=== PATIENT | male | born 1990 | race Caucasian/White ===

== ENCOUNTER 2024-12-01 09:34 | Outpatient (RCR) | payer BC, SELFPAY ==
--- NOTE | 2024-12-01 09:00 | BH.SGPN.GN ---
Behaviors/Verbalizations/Mental Status: [] Client Response/Progress/Benefit: [] Narrative Note: []
--- NOTE | 2024-12-01 10:21 | PCM.BH.PSYEV ---
Psychiatric Evaluation Initial Evaluation Initial Evaluation: HPI History of Present Illness History provided by: patient HPI: Dennys Kidd is a 34 year old male who presents today for new patient evaluation. Admits that he has been on fluoxetine since about [id number]. Admits to having had symptoms of depression and anxiety for a prolonged period. In July started to be weaned off of medication, so was started on buspirone and anxiety got exponentially worse. Had been trying to wean because of side effects of heat intolerance, low motivation, and fatigue. Also felt somewhat flattened. In October, was feeling significantly worse, and was hospitalized and admitted to [facility]. Was having some increased thoughts of suicide at this time. Admits to having started to formulate plan, but no attempt at this time. Because he has diabetes and glucose was poorly managed and was transferred to [facility] for diabetes management. Admits that his anxiety can increase and he starts to spiral afterwards. Patient reports that his mood now is ok. Recently started venlafaxine and has been taking for about the last 3 weeks. When feeling anxious, sleep is much worse, but has recently started trazodone. 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 Diabetes has been largely well controlled. Denies any acute SI HI or AVH. Sleep: uses trazodone, which has been helping Interest: was worse before, a little better now Guilt: admits to general sense of guilt and worthlessness Energy: has been somewhat better with effexor Concentration: poor with anxiety symptoms Appetite: anxiety worsens appetite, has lost 10-12 lbs without really trying Psychomotor: WNL Suicide: denies current SI, was feeling suicidal in October Memory: comes and goes Anxiety: admits to being high; has had panic symptoms in the past, none recently Madonna: denies symptoms PTSD: denies Psychosis: denies AH/VH or delusions Developmental History Developmental History: Siblings - 1 brother, 1 sister, 3 step brothers Born/Raised - [facility] [place], associates and bachelors from [employer] [facility] [place] Living Situation - lives with and kids; sons, 5 and going to be 3 Legal Issues - denies Employment - works at [employer] Children - 2 children as above Psychiatric History Previous psychiatric treatment history: x1 admission to [facility] Previous psychiatric diagnoses: depression, anxiety Previous psychiatric treatment programs: denies any previous Family Psychiatric History: Moms side - depression Fathers side - depression Suicidal Ideation Current: denies Past: yes in October History of suicide attempt: denies Suicide Risk Assessment Suicide risk factors: previous SI with partial plan Suicide protective factors: family, work Self Injurious Behavior Current: denies Past: denies Medication Trials Previous psychiatric medication trials: fluoxetine buspirone clonazepam Current/Previous Provider Psychiatrist: Ryan Buck in [place]; Follows with Phylicia Saavedra Therapist: Formerly followed using [facility] Other Substance Use History Nicotine- denies Alcohol- occasional alcohol Marijuana- denies Stimulants- denies Opioids- denies Other- denies Review of Systems: Admits to having some intermittent hypoglycemia which causes feeling faint and worsening anxiety. Review of systems otherwise negative outside of discussed in the HPI above Diagnoses/Plan:: Diagnoses: [] 1. Major depressive disorder, recurrent, severe without psychosis 2. Anxiety unspecified 3. Type 1 diabetes 4. Work stress Plan: [] The patient will start the IOP in behavioral health at [facility] as the structure, support, education and group therapy will hopefully prevent worsening of the patient's symptoms which could require hospitalization. He felt safe during the interview and if it anytime he does not feel safe he agrees to let us know or go to the emergency room. The risk, options, possible complications and side effects of the medications were discussed with the patient and he understands and accepts these. Patient has just started Effexor approximately 3 weeks ago and does feel as though he is doing better with the use of medication. We will continue on medications as before but could consider titration in the future pending response.
--- NOTE | 2024-12-01 11:42 | BH.MTP ---
Master Treatment Plan Patient Information Program Physician:: Dr. Cheli Tony Primary Therapist:: Natalia St Psychiatric Diagnoses Psychiatric Diagnoses:: Major depressive disorder, recurrent, severe without psychosis F33.2; Anxiety unspecified Diagnosis Code(s):: F 33.2 Estimated LOS Estimated LOS (in weeks):: 6 Problem/Goal #1 Problem/Goal #1 Stated Goal:: Pt will decrease depressive symptoms, thoughts of , and negative self-talk. Description of Barriers: Pt recently had side effects from a medication that resulted in worsening symptoms. Pt has lost some support as some of his family has moved out of [place]. Pt uses negative self-talk daily. Pt has not been able to enjoy his hobbies and interests. Functional Impact: Pt is a 34-year-old male with a history of MDD. Pt was referred to [facility] tx following a recent psych admission at [facility] from 10/24/24-10/25/24 for suicidal ideations with thoughts of crashing his car. Pt has been decompensating since July due to medication changes, work stress, and family stress. Prior to [facility] admission, pt had been off work for three weeks due to his symptoms. Pt also had to step back from his previous role at work due to his symptoms. At admission, pt endorses a depressed mood, low energy, hopelessness, worthlessness, isolation, anhedonia, and ruminations. Pt's daily functioning has been impaired as pt is struggling with getting out of bed and is not able to engage in his hobbies and interests. Goal Relevant Strengths/Supports: Pt has a supportive family unit, is future oriented, and has an outpatient psych provider. Objectives Objective #1: Stated Objective: Pt will learn and utilize 2-3 healthy coping strategies to better manage depressive symptoms as shown by a decrease of DMS-5 symptoms for depression. Interventions: Through group and individual sessions, therapist will help pt identify triggers and warning signs of depression and guilt including emotional, physical, and behavioral changes. Therapist will teach pt various coping skills to manage symptoms and give pt tangible resources to use to regulate emotions. Therapist will use cognitive restructuring techniques and help pt gain awareness of negative thoughts that reinforce guilt and depression. Therapist will provide psychoeducation on maintenance cycles and help pt learn ways to break unhealthy maintenance cycles. Therapist will help pt incorporate behavioral activation and assist pt in setting SMART goals. Discharge Criteria: Pt will have met this goal when can report learning and using at least 2 coping skills to manage depressive symptoms and reduce isolation. Additionally, pt will have met this goal when pt's DSM-5 scores for depression decrease. Target Date: 01/12/25 Review Date: 12/22/24 Status: open Objective #2: Stated Objective: Pt will identify at least 2-3 negative self-talk messages used to reinforce negative core beliefs, worthlessness, and isolation and replace thoughts with balanced, realistic messages. Interventions: Therapist will help pt identify distorted, negative beliefs about self and replace with more realistic, affirmative messages. Therapist will use CBT and DBT to help pt increase insight to the connection between thoughts, emotions, and behaviors. Therapist will encourage pt to practice thought challenging. Discharge Criteria: Pt will have achieved this goal when can verbalize at least 2 cognitive distortions and effectively replace those thoughts with affirmative messages. Target Date: 01/12/25 Review Date: 12/22/24 Status: open Problem/Goal #2 Problem/Goal #2 Stated Goal:: Will reduce anxiety symptoms through increasing emotional regulation and distress tolerance skills Description of Barriers: Pt recently had side effects from a medication that resulted in worsening symptoms. Pt has lost some support as some of his family has moved out of [place]. Pt uses negative self-talk daily. Pt has not been able to enjoy his hobbies and interests. Functional Impact: Pt is a 34-year-old male with a history of MDD. Pt was referred to [facility] tx following a recent psych admission at [facility] from 10/24/24-10/25/24 for suicidal ideations with thoughts of crashing his car. Pt has been decompensating since July due to medication changes, work stress, and family stress. Prior to [facility] admission, pt had been off work for three weeks due to his symptoms. Pt also had to step back from his previous role at work due to his symptoms. At admission, pt endorses a depressed mood, low energy, hopelessness, worthlessness, isolation, anhedonia, and ruminations. Pt's daily functioning has been impaired as pt is struggling with getting out of bed and is not able to engage in his hobbies and interests. Goal Relevant Strengths/Supports: Pt has a supportive family unit, is future oriented, and has an outpatient psych provider. Objectives Objective #1: Stated Objective: Pt will identify 2-3 anxiety and panic triggers and 2 coping skills to use when feeling anxious or overwhelmed to manage anxiety as shown by reducing DSM-5 scores for anxiety Interventions: Therapist will provide education on anxiety, avoidance behaviors, and maintenance cycles. Therapist will help pt explore personal symptoms and warning signs of anxiety and irritability. Therapist will teach pt coping skills to improve emotional regulation, mindfulness, and distress tolerance to help pt cope with anxiety in the moment. Discharge Criteria: Pt will have accomplished this goal when he can identify at least 2 triggers and report using 2 coping skills to manage anxiety and irritability. Additionally, pt will have accomplished this goal AEB reduction of DSM-5 scores for anxiety. Target Date: 01/12/25 Review Date: 12/22/24 Status: open Objective #2: Stated Objective: pt will identify 2-3 cognitive distortions that lead to rumination and learn 2-3 ways to manage these thoughts to better manage anxiety. Interventions: Therapist will provide education on the most common cognitive distortions and teach pt the connection between thoughts, emotions, and feelings. Therapist will assist pt in identifying, challenging, and replacing dysfunctional thoughts with positive, more realistic thoughts. Therapist will use CBT and DBT techniques to help pt gain awareness of thinking errors and learn how to more effectively handle negative thoughts. Discharge Criteria: Pt will have accomplished this goal when can identify at least 2 cognitive distortions and at least 2 coping skills to manage negative thoughts. Target Date: 01/12/25 Review Date: 12/22/24 Status: open
--- NOTE | 2024-12-01 11:42 | BH.MDN ---
Multi-Disciplinary Note Note 30-min Individual: Time Started:: 11:15 Date: 12/01/24 Purpose of session/treatment goals addressed:: To gather information on pt's current stressors, symptoms, triggers, history, and tx goals. Another goal was to build rapport and provide emotional support. Eye Contact:: Good Motor Activity:: Appropriate Appearance:: Neat Speech:: Appropriate Mood:: Anxious Affect:: Full Thoughts:: Linear, Logical and No evidence of hallucinations/delusions noted Staff Interventions:: rapport building, strengths perspective, treatment planning and goal setting Client Response:: Pt responded well to session, open to meeting with therapist. Pt reports his first day went well and he is hopeful about the program. Pt has been seeing a provider at [facility] in [place] for medication management, but pt feels that his mental health symptoms have not improved much which is what brought pt to IOP. Pt shared he has never done group before, but he thought today went well. Pt shared he has been struggling for a while now with his anxiety and depression, but pt feels like it got worse when he family moved out of [place]. Pt has a large family with siblings and half siblings and pt is close to most of them. Pt is also close with his father, but pt's father now lives out of [facility]. Pt shared they used to ayoub together and go fishing and now pt does not do these things anymore. Pt also noted that his work was becoming too overwhelming which worsened his symptoms as well. Pt shared recently he has taken a step back from his previous role at work and this was helpful. Pt stated he is constantly ruminating and has negative self-talk about his abilities. Pt also feels stressed at home as his children are at ages that require a lot of attention and caregiving. Pt receptive to setting goals for IOP and he will meet with therapist again next week. Risks/Concerns:: Pt denies any suicidal ideations, plan, or intent. Pt denies any thoughts of . Progress Toward Goals/Plan:: Pt's first day of IOP tx, so no progress noted. Pt reported he has an outpatient psych provider for medication management, but he will need a therapist after IOP. Pt reports his symptoms have been building up and pt feels that he has lost his interests and hobbies. Pt notes that a lot of his stress comes from work and being a parent. Pt's goals for IOP include reducing ruminations and getting back into his interests again. Pt will continue IOP tx to prevent decompensation, improve daily functioning, and gain healthy coping skills. Time Stopped:: 11:35
--- NOTE | 2024-12-01 11:47 | BH.PSA_ITS ---
Source of Information Presenting Problems/Circumstances Problems, Referral Source, Mental Status, Client: Pt is a 34-year-old male with a history of MDD. Pt was referred to [facility] tx following a recent psych admission at [facility] from 10/24/24-10/25/24 for suicidal ideations with thoughts of crashing his car. Pt has been decompensating since July due to medication changes, work stress, and family stress. Prior to IOP admission, pt had been off work for three weeks due to his symptoms. Pt also had to step back from his prev ious role at work due to his symptoms. At admission, pt endorses a depressed mood, low energy, hopelessness, worthlessness, isolation, anhedonia, and ruminations. Pt's daily functioning has been impaired as pt is struggling with getting out of bed and is not able to engage in his hobbies and interests. Psychiatric Presentation Psych Issues & Need for Admission Psychiatric Issues:: 1. Major depressive disorder, recurrent, severe without psychosis 2. Anxiety unspecified 3. Type 1 diabetes 4. Work stress Past Psychiatric History MH Treatment Hx Treatment History: [facility] from 10/24/24-10/25/24 for suicidal ideations with thoughts of crashing his car. No other psychiatric admissions. Pt has had counseling in the past and been on medication since 2016. Pt feels his depression and anxiety did not start until pt was in his teens/20s. Medication Trials:: Yes (fluoxetine buspirone clonazepam) ECT Therapy:: No Age of first mental health symptoms: teens Describe (age, circumstance, etc) any past hospitalizations: Pt first hospitalization as noted above when pt was 34 years old. Pt hospitalized due to depression with suicidal ideations. Current providers for mental health treatment (counselor, psychiatrist, high risk case manager, etc.): [facility] [place]; Follows with Phylicia Saavedra. Pt was seeing a therapist on [facility], but is not currently. Development & Family of Origin Childhood Significant Childhood Events: Pt was diagnosed with diabetes when he was a child and had to learn how to manage this. Family Who currently lives in your home?: Pt lives with his and their two children. Pt and live in [facility] [place] [place]. Describe family composition:: Pt was born and raised in [place]. Pt is the youngest child and he has 1 brother, 1 sister, 3 step brothers. Pt and his have been together since high school. Pt and his have two children. Pt reports their relationships is currently francheska. Pt has family support, but a lot of his family lives out of state. Family History Family Hx of Psychiatric or AOD Problems: Pt has history of depression on his maternal and paternal sides. Ethnicity Culture Do you identify yourself with any particular cultural, ethnic background, or community?: No Sexuality Sexual Orientation: Heterosexual Spirituality Alevism Do you currently identify with any organized hoahaoism?: Muslim Beliefs Is there a particular form of support from this community you can use for your recovery?: Yes Mental Status Memory Recent Memory: Good Remote Memory: Good Concentration Concentration: Good Eye Contact Eye Contact: Fair Speech Speech: Soft Thought Process Thought Process: Logical and Ruminations Insight: Fair Judgment: Fair Behavior: Anxious Orientation Orientation: Time, Person, Place and Situation Appearance Appearance: Neat/clean Mood Mood: Depressed Affect Affect: Flattened Suicide Assessment Suicidal Ideation Have you ever felt like hurting yourself?: Yes Please explain:: previous SI with partial plan Were you using ETOH/drugs at the time?: No Suicidal Intentional Rating Scale (SIRS): Suicidal thoughts (past) Physician Notification Violent Behavior/Abuse History Homicidal Ideation Do you have any homicidal thoughts? If so, explain:: No Abuse Have you ever been abused?: No Life Events Are there any other significant life events?: Hardships (Type I diabetes diagnosed when he was a child. Pt's youngest son had to have surgery on his spine which was stressful, pt's father moved to [place]) Safety Do you ever feel threatened in your home? If yes, describe:: No Adult Social History Age 18 to Present Describe your current support system:: Pt's and his father by phone. Pt also attends a bible study group. Substance Use Substance Substance Use Type: None Specific Drugs What specific drugs have you used?: Pt denies all substance use. IV Substance Use Do you have a history of IV use?: denies Leisure/Social Activities Interests What do you enjoy or might be interested in learning about?: Pt enjoys NASCAR and making models. Education & Occupational Histo Education What is your level of education?: Bachelor Degree ([employer], associates and bachelors from [employer] and [employer]) Do you have any learning disabilities?: No Occupation List any current or past employment:: works at [employer] and has worked there for 12 years. Service Service Have you ever been in the ?: No Legal History Records Have you had any past legal charges?: No Do you have any current legal charges?: No Have you ever been incarcerated? If yes, describe:: No Court Orders Have you had any past court orders for psychiatric treatment?: No Do you have a present court order for psychiatric treatment?: No Problem Checklist Current Problem Areas Problem List: Depressed mood/sad, Anxiety, Inattention, Other addictive behaviors (pt reports a porn addiction), Pertinent health issues and Additional psychosocial stressors (work and marital stress) Discharge Planning Needs Anticipated Follow-Up Mental Health Center (Name/Phone Number):: [facility] [place] Audit Mgr's Assessment Client's Needs What are the client's goals?: reduce depression and ruminations. What are the client's strengths?: Pt is connected with an outpatient psych provider, he has support from family, and he is motivated. Diagnoses Diagnoses Diagnosis #1:: Major depressive disorder, recurrent, severe without psychosis Diagnosis #2:: Anxiety unspecified Interpretive Summary Interpretive Summary Interpretive Summary: Pt is a 34 year old male who presents today for new patient evaluation. Admits that he has been on fluoxetine since about [id number]. Admits to having had symptoms of depression and anxiety for a prolonged period. In July started to be weaned off of medication, so was started on buspirone and anxiety got exponentially worse. Had been trying to wean because of side effects of heat intolerance, low motivation, and fatigue. Also felt somewhat flattened. In October, was feeling significantly worse, and was hospitalized and admitted to [facility]. Was having some increased thoughts of suicide at this time. Admits to having started to formulate plan, but no attempt at this time. Because he has diabetes and glucose was poorly managed and was transferred to [facility] for diabetes management. Admits that his anxiety can increase and he starts to spiral afterwards. Patient reports that his mood now is ok. Recently started venlafaxine and has been taking for about the last 3 weeks. When feeling anxious, sleep is much worse, but has recently started trazodone. 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 Diabetes has been largely well controlled. Primary triggers aside from medication changes include marital stress and work stress. Family history of depression on both his mother?s and his father?s sides of the family. Pt denies any substance use. Pt denies any legal charges. Pt lives with his and their two children. Treatment Plan Recommendations Recommendations Guidelines Recommendations:: Pt will start IOP as the structure, support, education and group therapy will hopefully prevent worsening of pt?s symptoms which could require hospitalization. He felt safe during the interview and if it anytime he does not feel safe he agrees to let us know or go to the emergency room. The risk, options, possible complications and side effects of the medications were discussed with pt and Dr. Wilson. Pt would like a new outpatient therapist prior to IOP discharge.
--- NOTE | 2024-12-04 06:25 | PCM.BH.PSYEV ---
Psychiatric Evaluation Initial Evaluation Initial Evaluation: Initial Treatment Plan Patient Information Visit Information: ADMISSION DATE: 12/01/2024 EXPECTED LOS: 4-6 weeks Problems/Symptoms Problem #1:: Depression Symptom:: Sadness, worthlessness, hopelessness, hypersomnia, low motivation, suicidality, anhedonia Problem #2:: Anxiety Symptom:: Worry, rumination, panic attacks, avoidance
--- NOTE | 2024-12-04 09:00 | BH.SGPN.GN ---
Behaviors/Verbalizations/Mental Status: [] Eye contact is good. Motor activity is appropriate. Appearance is casual. Speech is Appropriate. Mood is anxious. Affect is flat. Thoughts are linear and logical. No evidence of psychosis. Reviewed daily check in sheet and no reports of suicidal ideations or intent Client Response/Progress/Benefit: [] Pt was an active participant in group discussion. Attentive. I was alright this weekend. According to pt he was able to manage his mental health well this weekend. He was very busy and distracted which he was able to identify is helpful for his mental health. I struggle when I 'm alone. Current stressors mainly revolve around work. Emotion for today is anxious. Limited progress noted as this is pt's 2nd day in the program. Benefited from group support, encouragement, and feedback. Will continue in IOP to prevent decompensation/re-admission to psych unit, increase healthy coping, and increase coping skills. Narrative Note: []
--- NOTE | 2024-12-04 10:10 | BH.SGPN.GN ---
Behaviors/Verbalizations/Mental Status: []Eye contact is fair. Motor activity is appropriate. Appearance is casual. Speech is Appropriate. Mood is anxious. Affect is congruent. Thoughts are linear and logical. No evidence of psychosis. Client Response/Progress/Benefit: [] Pt was an active participant in group discussions. Attentive during psychoeducation. Contributed during interactive discussions in which peers attempted to define crisis. Group identified crisis examples. Group also worked together to identify warning signs and unhealthy responses to crisis which included shutting down, isolation, avoidance, over-thinking, disordered eating, and self-harm. Pt identified top 3 warning signs as: isolation, avoidance/lack of motivation, and panic. Benefited from increased understanding of crisis and awareness of personal responses to crisis. Pt will continue IOP tx to improve boundary setting, improve view of self, and prevent decompensation. Narrative Note: []
--- NOTE | 2024-12-04 11:10 | BH.SGPN.GN ---
Behaviors/Verbalizations/Mental Status: []Pt alert and oriented, appropriate grooming/appearance. Eye contact fair. Motor activity appropriate. Speech within normal limits. Affect congruent, mood dysthymic. Thoughts linear, logical, no signs of hallucinations or delusions. Client Response/Progress/Benefit: []Pt was an active participant in group discussions. Attentive during psychoeducation. In small group pt along with peers developed an active plan for their crisis warning signs. Pt identified three crisis warning signs as well as an action plan for each. One crisis warning sign was isolation. Pt identified strategies to help with this such as: getting outside, changing environment, reaching out to support, and do something he enjoys. ?Benefited from increased awareness of crisis warning signs and by developing crisis intervention strategies. Will continue in IOP to increase healthy coping, challenge negative thoughts, and prevent decompensation.
--- NOTE | 2024-12-07 02:00 | BH.SGPN.GN ---
Behaviors/Verbalizations/Mental Status: [] Eye contact is good. Motor activity is appropriate. Appearance is casual. Speech is Appropriate. Mood is dysthymic. Affect is congruent. Thoughts are linear and logical. No evidence of psychosis. Reviewed daily check in sheet and no reports of suicidal ideations or intent. Client Response/Progress/Benefit: [] Pt was an active participant in group discussions. Attentive. Did well to identify 2 mental health wins including being able to get to group today despite wanting to stay in bed. Identified use of opposite action. Additional win noted as completing all of his work requirements despite it being a rough day yesterday and reports positive self-talk to aid in doing so. Current stressor noted as struggling with stress at work today. Benefited from group support, encouragement, and feedback. Will continue in IOP to prevent decompensation, promote mood stability, and increase consistent use of healthy coping. Narrative Note: []
--- NOTE | 2024-12-07 10:10 | BH.SGPN.GN ---
Behaviors/Verbalizations/Mental Status: [] Pt alert and oriented, casually dressed and groomed. Eye contact good. Motor activity appropriate. Speech within normal limits. Mood: anxious. Affect: congruent. Thoughts linear, logical, no signs of hallucinations or delusions. Client Response/Progress/Benefit: [] Pt participated at times during the group discussions. Attentive during psychoeducation on self-sabotage and its impact on mental health. Attentive as peers worked together to define self-sabotage. Worked with peers to provide examples of the eight types of self-sabotage (procrastination, self-medicating, unrealistic expectations, people-pleasing, and poor boundaries). Worked with peers to identify reasons for self-sabotage behaviors (feels comfortable, can distract,perceived control, fear of success, and a type of self-protection). Seemed to benefit from gaining awareness about the self-sabotage. Pt to continue IOP tx to prevent decompensation/re-admission to psych unit, stabilize mood, increase healthy coping, and improve functioning.
--- NOTE | 2024-12-07 11:10 | BH.SGPN.GN ---
Behaviors/Verbalizations/Mental Status: []Pt alert and oriented, casually dressed and groomed. Eye contact fair. Motor activity appropriate. Speech within normal limits. Affect constricted, mood dysthymic and anxious. Thoughts linear, logical, no signs of hallucinations or delusions. Client Response/Progress/Benefit: []Pt responded well to session, attentive and providing input. Pt worked on her mental health wellness garden picture and discussed things that contribute to mental wellness in his life. With peers, pt discussed things that would sabotage one's mental health wellness and added it to the garden metaphor. Pt identified things pt personally does to sabotage as poor communication, negative thinking, and not having work/life balance. Pt attentive during psychoeducation on ways to reduce self-sabotage. Pt identified a skill to work on to decrease sabotaging behaviors. Pt appeared to benefit from learning skills and gaining awareness of self-sabotaging behaviors. Pt will continue IOP tx to improve distress tolerance, challenge negative thoughts, and prevent decompensation.
--- NOTE | 2024-12-08 09:05 | BH.SGPN.GN ---
Behaviors/Verbalizations/Mental Status: [] Eye contact is good. Motor activity is appropriate. Appearance is casual. Speech is Appropriate. Mood is anxious/depressed. Affect is congruent. Thoughts are linear and logical. No evidence of psychosis. Reviewed daily check in sheet and no reports of suicidal ideations or intent. Client Response/Progress/Benefit: [] Pt participated at times during the group discussions. Attentive. Daily symptom tracker notes 4/5 for depression and anxiety. Overall functioning and mood reported to be ?worse?. ? I had a rough morning?. According to pt he did not sleep well. Reports being overwhelmed with ?life?. He described a ?negative loop? that he has found himself in. Insight that he is struggling to break this cycle. Limited progress noted. Benefited from group support, encouragement, and feedback. Will continue in IOP to prevent decompensation/re-admission to psych unit, increase healthy coping, and improve functioning. Narrative Note: []
--- NOTE | 2024-12-08 10:15 | BH.SGPN.GN ---
Behaviors/Verbalizations/Mental Status: []Pt alert and oriented, casually dressed and groomed. Eye contact good. Motor activity appropriate. Speech within normal limits. Affect congruent, mood anxious and depressed. Thoughts linear, logical, no signs of hallucinations or delusions. Client Response/Progress/Benefit: [] Pt receptive to session AEB contributing to group discussion, as well as listening attentively to others, and taking notes. Worked with group to brainstorm the positive and negative aspects of stress on physical and mental health as well as the impact of distress on performance, relationships, and mental health. Pt shared their top stressors to be: relationships, lack of confidence, and work. Shared when feeling overwhelmed with stress pt tends to shut down and avoid support. Benefited from increased awareness of positive and negative stress as well as how stress impact individuals. Will continue in IOP to prevent decompensation, increase distress tolerance, and improve dialectical thinking. Narrative Note: []
--- NOTE | 2024-12-08 14:48 | BH.MDN ---
Multi-Disciplinary Note Note 45-min Individual: Time Started:: 11:20 Date: 12/08/24 Purpose of session/treatment goals addressed:: To work on goal #1 of pt's tx plan by identifying cognitive distortions pt often uses and how these impact pt. Eye Contact:: Good Motor Activity:: Appropriate Appearance:: Casual Speech:: Appropriate Mood:: Anxious and Depressed Affect:: Constricted Thoughts:: Linear, Other (ruminations ) and No evidence of hallucinations/delusions noted Staff Interventions:: thought challenging, psychoeducation on: (cognitive distortions), CBT techniques, mindfulness skills (practiced PMR), strengths perspective and taught coping skills Client Response:: Pt responded well to session, open to meeting with therapist. Pt was anxious today, so he was open to trying a grounding strategy during session. Pt practiced in a guided PMR and reported it helped pt release tension from his shoulders. Pt stated group is going well for pt, but he is getting used to talking about his emotions. Pt shared this is a source of contention between he and his . Pt also noted that he is learning about how negative his thought patterns are as well. Pt receptive to learning about common cognitive distortions in session today. Pt and therapist reviewed the distortions and pt identified several he uses consistently. These included: emotional reasoning, labeling, catastrophizing, all or nothing thinking, and shoulds. Pt shared these thought patterns lead to pt often not feeling good enough at work, home, or as a parent. Pt also notices that he uses a lot of judgmental language with himself which reinforces depression. Pt receptive to learning some strategies for challenging distortions including dialectical thinking, just thoughts, and self-compassion. Pt receptive to working on catching distortions for homework. Risks/Concerns:: Pt denies any suicidal ideations, plan, or intent. Pt denies any thoughts of . Progress Toward Goals/Plan:: Pt is responding well to IOP tx AEB his consistent attendance and engagement. Pt stated talking about emotions is not easy for him, so he is trying to work on this. Pt's symptoms are ongoing and he is primarily reporting depressive symptoms but a lot of anxiety associated with work. Pt receptive to learning about cognitive distortions today and did well with the PMR practice. Pt will continue IOP tx to prevent decompensation, improve daily functioning, and increase ability to combat distortions. Time Stopped:: 12:00
--- NOTE | 2024-12-11 09:05 | BH.SGPN.GN ---
Behaviors/Verbalizations/Mental Status: [] Eye contact is good. Motor activity is appropriate. Appearance is casual. Speech is Appropriate. Mood is depressed/irritable. Affect is congruent. Thoughts are linear and logical. No evidence of psychosis. Reviewed daily check in sheet and no reports of suicidal ideations or intent Client Response/Progress/Benefit: [] Pt participated at times during the group discussions. Attentive. Daily symptom tracker notes 4/5 for anxiety and depression. Feeling ?anxious and depressed?. ? Its hard to just get moving?. Reports feeling disengaged with support and ?blah?. He is trying to spend more time with family and be present, however this has been difficult. Limited progress noted. Benefited from group support, encouragement, and feedback. Will continue in IOP to maintain safety, prevent decompensation/re-admission, and improve functioning. Narrative Note: []
--- NOTE | 2024-12-11 10:10 | BH.SGPN.GN ---
Behaviors/Verbalizations/Mental Status: []Patient was alert and oriented, casually dressed and groomed. Eye contact good. motor activity appropriate. speech within normal limits. Affect congruent, mood dysthymic and irritable. Thoughts linear, logical, no signs of hallucinations or delusion. Client Response/Progress/Benefit: [] Pt participated in the group discussions AEB providing input, nodding and taking notes. Attentive during psychoeducation Goal Setting. Participated during the discussion on common barriers. Pt stated personal barriers to accomplishing goals include procrastination, forgetting, and fear of failure. Group also identified benefits of goals as sense of purpose, improved self-confidence, more motivation for other goals, sense of accomplishment, and improved mental health. Pt identified personal benefits to goal setting. Benefited from increased awareness of mental health benefits of goals as well as psychoeducation on SMART goal criteria. Will continue in IOP to prevent decompensation, improve daily functioning, and reduce negative self-talk. Narrative Note: []
--- NOTE | 2024-12-11 11:10 | BH.SGPN.GN ---
Behaviors/Verbalizations/Mental Status: [] Pt alert and oriented. Appearance is casual. Eye contact good. Motor activity appropriate. Speech within normal limits. Affect is dysthymic. Mood is congruent. Thoughts linear, logical, no signs of hallucinations or delusions. Client Response/Progress/Benefit: [] Pt was attentive during discussion and participated during experiential activity. Completed the worksheet challenging them to develop a personal SMART goal. Pt chose a SMART goal to complete a hobby once this week. Believes this goal will benefit them being through being less stressed. Identified obstacles such as procrastination, forgetting, and fear of failure. .Benefited from this group by developing a short-term SMART goal related to mental health. Will continue IOP to prevent decompensation/re-admission to psych unit, increase healthy coping, and maintain safety. Narrative Note: []
--- NOTE | 2024-12-12 09:00 | BH.SGPN.GN ---
Behaviors/Verbalizations/Mental Status: []Pt alert and oriented, casually dressed and groomed. Eye contact good. Motor activity appropriate. Speech within normal limits. Affect congruent, mood depressed. Thoughts linear, logical, no signs of hallucinations or delusions. Reviewed pt?s symptom tracker, no risk for suicidal ideation, plan, or intent /. Client Response/Progress/Benefit: [] Pt was an active participant in group discussions. Attentive. Able to identify mental health wins including painting character models with his son for fun last night and using opposite action to exercise when he did not want to. Pt's stressor today is figuring out what he wants to do with his job and not feeling present at home. Pt stated pt is feeling up and down? this morning. Pt receptive to feedback from peers which pt reported was helpful. Progress noted. Benefited from group support, encouragement, and feedback. Will continue in IOP tx to prevent decompensation, improve daily functioning, and reduce negative self-talk. ? Narrative Note: []
--- NOTE | 2024-12-12 10:45 | PCM.BH.PN_ITS ---
Progress Note Progress Note: History of Present Illness/Interim History: The patient is a 34-year-old male with a history of anxiety, depression and type 1 diabetes that was out of control in early October 2024 when he was admitted to the [facility] psychiatric unit for worsening anxiety and depression. He was admitted on October 22 and discharged about October 24, 2024. He had some passive, fleeting suicidal ideation at the time and passive thoughts of . This worsening of symptoms started because he had been on Prozac and had side effects and so was weaned in July 2024 and then just kept getting worse after he was off the Prozac. He is now on Effexor XR and the dose was increased 4 days ago and it has yet to really help him significantly. 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 The patient was seen by Dr. Wilson 11 days ago for his initial evaluation at [facility] and no medication changes were made at that time as they had been recently started in the first week of October. He states that lately he is still having sadness, occasional crying spells and anxiety symptoms. He has some passive thoughts of but denies any passive fleeting suicidal ideation since 2 weeks ago. He denies any plan for suicide ever. He is having panic attacks once or twice a week and he is a worrier by nature. His blood sugar now is under good control because he has his insulin pump back. His sleep is okay at about 7 hours a night since adding the trazodone 2 weeks ago. He has had weight loss of 10 to 12 pounds as he has a decreased appetite due to anxiety and he is still thinks he may be losing weight as this has not improved yet. He denies homicidal ideation, hallucinations or delusions. Current Psychiatric Medications: [] Effexor XR 37.5 mg in early October and then it was increased to 4 days ago to 75 mg p.o. daily. He is also on trazodone 50 mg at p.o. at bedtime for the past several weeks. Mental Status Examination: [] The patient is a 34-year-old male with a martino who is casually dressed and groomed with good hygiene and has no psychomotor agitation or retardation. He is ambulatory with a normal gait and appears normal for stated age. Speech is normal rate and rhythm and fluent with no pressure and eye contact is good. Thought process is goal-directed and organized. Thought content: There is evidence of passive thoughts of . There is no evidence of suicidal ideation, plan for suicide, homicidal ideation, hallucinations or delusions. Reality testing is intact. Intelligence is average or above. Judgment is intact. Insight Limited but some present. Impulsivity is low. Diagnoses: [] 1. Major depressive disorder, recurrent, severe without psychosis 2. Anxiety disorder unspecified (F41.9) 3. Type 1 diabetes mellitus 4. Work stress Plan: [] The patient will continue the IOP and behavioral health at [facility] as the structure, support, education and group therapy will hopefully prevent worsening of the patient's symptoms which could require rehospitalization. He felt safe during the interview and if it anytime he does not feel safe he agrees to let us know or go to the emergency room. No medication changes were made today as his Effexor XR dose was increased 4 days ago. He will continue to follow-up with his outpatient providers and I will see the Kuldip patient in follow-up in 2 to 3 weeks. If he does not improve on Effexor and his weight loss continues we could consider the addition of Remeron in addition to or to replace the Effexor and the trazodone.
--- NOTE | 2024-12-12 11:10 | BH.SGPN.GN ---
Behaviors/Verbalizations/Mental Status: []Client alert and oriented, casually dressed and groomed. Eye contact fair. Motor activity appropriate. Speech within normal limits. Affect congruent, mood anxious. Thoughts linear, logical, no signs of hallucinations or delusions. Client Response/Progress/Benefit: []Pt was engaged throughout AEB contributing to group discussion and activity. Group processed how they each responded to the intentionally difficult task they were asked to completed and described the physical and emotional anger cues experienced throughout, as well as strategies used for managing these frustrations. Pt contributed as group brainstormed healthy coping skills for better managing anger which included: music, walking/exercise, taking a break, healthy venting, avoiding unnecessary stressors, reflection, and journaling. Pt cooperative with working in small groups to identify what strategy wants to work on to help interrupt personal anger cycle. Pt shared he learned today stepping away is okay. Pt to continue IOP to improve distress tolerance, challenge negative thoughts, and prevent decompensation.
--- NOTE | 2024-12-14 11:10 | BH.SGPN.GN ---
Behaviors/Verbalizations/Mental Status: [] Pt alert and oriented, casually dressed and groomed. Eye contact fair. Motor activity appropriate. Speech within normal limits. Affect congruent, mood depressed. Thoughts linear, logical, no signs of hallucinations or delusions. Client Response/Progress/Benefit: [] Pt responded well to session, engaged in the experiential activity and attentive throughout group processing. Interactive discussion with peers on what FOF has kept them from which included; trying new things, therapy, and medications as all as starting or ending relationships/jobs. Pt completed fear of failure worksheet and was able to identify thoughts and behaviors that reinforce personal fear of failure. Pt participated in small group discussion regarding strategies to overcome fear of failure. Identified struggling most with knowing I'm going to suck at first. Strategies to overcome FOF identified as challenge negative thoughts. ?Appeared to benefit from increased knowledge of strategies to combat fear of failure and gaining self-awareness. Pt will continue IOP tx to prevent decompensation/re-admission to psych unit, increase healthy coping, and improve functioning. Narrative Note: []
--- NOTE | 2024-12-19 10:29 | BH.MDN_ITS ---
Multi-Disciplinary Note Note 45-min Individual: Time Started:: 09:20 Date: 12/14/24 Purpose of session/treatment goals addressed:: To process current stressors and triggers that occurred between pt and his . Another goal was to increase interpersonal effectiveness skills. Eye Contact:: Good Motor Activity:: Appropriate Appearance:: Neat Speech:: Soft Mood:: Anxious and Depressed Affect:: Flat Thoughts:: Linear, Logical and No evidence of hallucinations/delusions noted Staff Interventions:: thought challenging, CBT techniques, strengths perspective, goal setting and other (interpersonal effectiveness skills.) Client Response:: Pt responded well to session, open to meeting with therapist. Pt did complete homework from last session which was to pay more attention to his distortions and begin combating them. Pt also spent some time e ngaging in a hobby last week which pt enjoyed. Pt shared he had a regression in his depressive symptoms which then triggered an argument with his and her calling pt's outpatient provider. Pt got a medication change from this and pt feels that it is helping so far. However, pt reported he and his are having a lot of conflict and pt is unsure what to do. Pt shared they have been to couple's counseling in the past, but they stopped. Pt feels his could also benefit from talking to someone, but she is very private about this she doesn't even talk to her family about it. Pt stated she has made comments to pt about his depression that have worsened his negative self-talk and made it difficult for pt to talk to her. Pt shared I'm also not good at talking about my emotions so I just shut down and that doesn't work either. Pt receptive to problem solving ways to increase connection with his and improve their communication. Pt was open to trying check-ins with his and being more assertive when it comes to addressing conflict instead of avoiding until it became worse. Pt also receptive to working on setting some emotional boundaries with his as pt often feels responsible for her feelings which then leads to self-deprecation and avoidance. Pt to talk with his this weekend and continue working on challenging distortions. Risks/Concerns:: No risk noted. Pt denies any active SI, plan, or intent. Progress Toward Goals/Plan:: Progress noted in pt's consistent attendance, engagement, and willingness to learn new skills. Pt's symptoms are ongoing and pt recently had more depressive symptoms this week which resulted in a medication change by his outpatient provider. pt feels that the change was helpful. Pt continues to report negative thinking patterns, low motivation, anhedonia, and conflict at home. Pt is becoming more aware of his negative self- talk and trying to challenge this. Pt's relationship with his is his biggest stressor currently. Pt will continue IOP tx to prevent decompensation, improve daily functioning, and increase self-compassion. Time Stopped:: 10:00
== END 2024-12-15 23:59 ==
LOC: BHIOP 09:34
PROVIDERS: PCP Pediatrics; Visit Provider Psychiatry & Neurology Psychiatry
DX: F33.2 Major depressive disorder, recurrent severe without psychotic features (principal); F41.9 Anxiety disorder, unspecified
CPT/HCPCS: S9480; 90832; 90834; 90853

== ENCOUNTER 2024-12-18 07:37 | Outpatient (RCR) | payer BC, SELFPAY ==
--- NOTE | 2024-12-14 10:15 | BH.SGPN.GN ---
Behaviors/Verbalizations/Mental Status: []Pt alert and oriented, neatly dressed and groomed. Eye contact good. Motor activity appropriate. Speech within normal limits. Affect congruent, mood depressed. Thoughts linear, logical, no signs of hallucinations or delusions. Client Response/Progress/Benefit: [] Pt responded well to session, engaged in the experiential activity and attentive throughout group processing. Pt reported fear of failure has kept Pt from reaching out to friends and setting boundaries. Pt completed fear of failure worksheet and was able to identify thoughts and behaviors that reinforce personal fear of failure including negative self-talk, isolation, and avoidance. Pt participated in small group discussion regarding strategies to overcome fear of failure. Identified wanting to work on thinking in the joyner and practicing self-compassion. ?Appeared to benefit from increased knowledge of strategies to combat fear of failure and gaining self-awareness. Pt will continue IOP tx to prevent decompensation, reduce rumination, and improve self-confidence. ?? Narrative Note: []
--- NOTE | 2024-12-18 09:00 | BH.SGPN.GN ---
Behaviors/Verbalizations/Mental Status: [] Eye contact is good. Motor activity is appropriate. Appearance is casual. Speech is Appropriate. Mood is depressed. Affect is congruent. Thoughts are linear and logical. No evidence of psychosis. Reviewed daily check in sheet and no reports of suicidal ideations or intent. Client Response/Progress/Benefit: [] Pt participated at times. Attentive. Daily symptom tracker notes 12/20 for depression/anxiety. Able to identify healthy habits and skills used over the weekend. Made an effort to engage socially with friends which was beneficial. Reports overall feeling ? burned out? and considering a change. Primary stressor related to work . Elaborated on the impact that his current work environment has on his mental health . Progress noted. Benefited from group support, encouragement, and feedback. Will continue in IOP to maintain safety, prevent decompensation/re-admission to psych unit, and improve functioning to return to FT work. Narrative Note: []
--- NOTE | 2024-12-18 11:15 | BH.SGPN.GN ---
Behaviors/Verbalizations/Mental Status: []Pt alert and oriented, casually dressed and groomed. Eye contact good. Motor activity appropriate. Speech within normal limits. Affect congruent, mood depressed and anxious. Thoughts linear, logical, no signs of hallucinations or delusions. Client Response/Progress/Benefit: [] Pt responded well to session AEB Pt listening attentively to others and providing input during group discussion on the pay offs and costs of the different communication styles. Pt able to connect how current communication style impacts mental health. Connected with peers? comments about importance of using assertive communication. Pt seemed to benefit from increasing awareness of healthy strategies to improve communication and worked within small group to identify assertive communication approaches to example scenarios. Identified wanting to work on more consistently expressing his emotions when communicating with others. Will continue IOP tx to prevent decompensation, improve mood stability, and improve daily functioning. ? Narrative Note: []
--- NOTE | 2024-12-19 09:00 | BH.SGPN.GN ---
Behaviors/Verbalizations/Mental Status: [] Eye contact is good. Motor activity is appropriate. Appearance is casual. Speech is Appropriate. Mood is anxious. Affect is congruent. Thoughts are linear and logical. No evidence of psychosis. Reviewed daily check in sheet and no reports of suicidal ideations or intent. Client Response/Progress/Benefit: [] Pt was an active participant in group discussions. Attentive. Did well to identify 2 mental health wins. Wins included making it a priority to actually get here today despite struggling with fatigue this morning. Additional win noted as spending more intentional time with his son last night rather than being on his phone while doing so. Stressor reported as work and not knowing if he wants to stay in his current field. Receptive of and appearing to benefit from group support, encouragement, and feedback. Will continue in IOP to prevent decompensation, promote mood stability, and increase consistent use of healthy coping. Narrative Note: []
--- NOTE | 2024-12-19 10:15 | BH.SGPN.GN ---
Behaviors/Verbalizations/Mental Status: []Pt alert and oriented, casually dressed and groomed. Eye contact good. Motor activity appropriate. Speech within normal limits. Affect congruent, mood depressed. Thoughts linear, logical, no signs of hallucinations or delusions. Client Response/Progress/Benefit: [] Pt responded well to session, attentive and engaged. Group participated in the discussion defining stigma as well as what stigma has kept pt's from doing in their lives. Pt stated mental health stigma has kept pt from meeting friends, being honest, and getting help. Pt worked with peers to begin discussion of what reinforces stigma, both socially and internally, and this was discussed further in the next group. Pt appeared to benefit from learning about the different types of stigma as well as gaining awareness of how stigma has personally impacted pt. Pt will continue IOP tx to prevent decompensation, increase self-confidence, and improve daily functioning. ?? Narrative Note: []
--- NOTE | 2024-12-19 11:15 | BH.SGPN.GN ---
: []Behaviors/Verbalizations/Mental Status: []Pt alert and oriented, casually dressed and groomed. Eye contact fair. Motor activity appropriate. Speech within normal limits. Affect congruent, mood euthymic. Thoughts linear, logical, no signs of hallucinations or delusions. Client Response/Progress/Benefit: [] Pt engaged participant AEB participating in the activity, providing input during small group discussion, and listening attentively to others. Pt appeared to connect with discussion in the benefits of addressing mental health stigma which included: improved relationships, increased willingness to seek help, increased happiness, and improved confidence. Group brainstormed strategies to combat social and perceived stigma. Pt did not share how he reinforces mental health stigma or what strategy he would like to work on. Client did appear to write down his responses. Appeared to benefit from increasing awareness of strategies to combat stigma. Pt is to continue IOP to challenge distortions, increase follow through, and prevent decompensation.
--- NOTE | 2024-12-19 14:41 | BH.MDN_ITS ---
Multi-Disciplinary Note Note 45-min Individual: Time Started:: 11:20 Date: 12/19/24 Purpose of session/treatment goals addressed:: To work on goal #1 of pt's tx plan by combatting cognitive distortions. Eye Contact:: Good Motor Activity:: Appropriate Appearance:: Neat Speech:: Soft Mood:: Anxious and Depressed Affect:: Constricted Thoughts:: Linear, Logical and No evidence of hallucinations/delusions noted Staff Interventions:: thought challenging, motivational interviewing, CBT techniques, strengths perspective and taught coping skills Client Response:: Pt responded well to session, open to meeting with therapist. Pt reports he is doing not great and shared that he attempted to address something with his over the weekend and it turned into a big argument. Pt also stated he feels like he is not being a good father and he is not present. Pt appeared to benefit from processing these verbally and responded well to follow up questions. Through these questions, pt gained awareness that his expectations for himself as a father may be unrealistic and that there is a good chance that he is being too critical of himself. Pt shared that he expects himself to be always present, focused, and enjoying time when I'm with my kids. Pt gained insight that this is not an expectation that can be accomplished by most parents and he was encouraged to begin identifying things he does well with his kids and to practice a non-judgmental approach to emotions he has while playing with his kids. For example, pt is to practice accepting his emotions of boredom or impatience instead of judging those emotions which pt recognizes makes him feel worse. Pt shared that he expressed to his that he cannot keep working at his job because pt is realizing that his mental health is more impacted than he thought by his work. Pt stated his did not take it well and they fought. 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 Pt did well with not personalizing his 's comments and reminded himself that he is a hard worker and he will find a new job. Pt also encouraged to identify traits of jobs rather than look for a new job so that pt can find something sustainable. Risks/Concerns:: Pt denies any suicidal ideations, plan, or intent. Pt denies any thoughts of . Progress Toward Goals/Plan:: No significant changes from last session, but pt does report gaining more insight that he needs to find a new job. This is both a helpful realization and a stressor for pt. Pt reports the medication change has been helpful, but his stressors within his relationship are ongoing and impacting pt's mental health. Pt will continue IOP tx to prevent decompen sation, gain healthy coping skills, and combat distortions. Time Stopped:: 12:00
--- NOTE | 2024-12-20 15:02 | BH.MTP_ITS ---
Treatment Plan Review Demographics Date of Admission:: 12/01/24 Date of Treatment Plan Review:: 12/20/24 Admitting Diagnoses:: Major depressive disorder, recurrent, severe without psychosis F33.2; Anxiety unspecified Current Diagnoses:: Major depressive disorder, recurrent, severe without psychosis F33.2; Anxiety unspecified Patient Status Patient's Response to Treatment:: Pt has responded well to session AEB consistently attending IOP and engaging in both individual and group therapy sessions. Pt consistently completes homework provided from individual counseling. Pt contributes actively during group discussions, takes notes, appears to listen to others, and engages in group activities. Pt feels like his medication was not helping pt and was recently switched back to Prozac which pt is hopeful about. Pt's overall DSM-5 scores have decreased by 17% since admission and he reports finding benefit from the coping skills so far. Status of Current Problems and Symptoms: Pt's symptoms are resolving in some areas (SI, anxiety, and anger) but pt's depressive symptoms remain the same since admission. Pt's primary stressors contributing to his mental health symptoms include work, marital tension, and not having a lot of support. Pt reports he is doing some things he used to enjoy, but pt still has to force himself to engage in these hobbies. Pt is getting better at recognizing and challenging distortions. Progress Problem #1: Problem Name:: Depression, passive SI, and worthlessness. Status of Goals:: Objective 1- in progress. Pt?s scores for depression are the same since admission. Pt reports belief that his medication change should help with this. Pt also feels his depression is tied to his dissatisfaction and constant stress at work. Pt is working on using opposite action and exercising. Objective 2- in progress. Pt is working on self-compassi on, dialectical thinking, and combatting unrealistic expectations. Team Recommendations:: Team recommends continued goals and objectives to reinforce skills and reduce symptoms. Team recommends pt continue working on combating distortions, being more self-compassionate, and practicing dialectical thinking. Problem #2: Problem Name:: Anxiety, ruminations, and low distress tolerance. Status of Goals:: Objective 1- in progress. Pt's anxiety has decreased by 10% since admission and he reports he is working on communicating more with his . Pt still feels anxious and on edge most days. Pt reports practicing calming skills with some benefit. Objective 2- complete with ongoing work encouraged. Pt can identify distortions and knows different techniques to combat ruminations. Pt can continue to improve his self-compassion. Team Recommendations:: Treatment team encourages pt to continue working on distress tolerance skills, verbalizing boundaries, grounding skills, and getting back into old hobbies.
--- NOTE | 2024-12-21 09:05 | BH.SGPN.GN ---
Behaviors/Verbalizations/Mental Status: [] Eye contact is good. Motor activity is appropriate. Appearance is casual. Speech is Appropriate. Mood is euthymic. Affect is full. Thoughts are linear and logical. No evidence of psychosis. Reviewed daily check in sheet and no reports of suicidal ideations or intent Client Response/Progress/Benefit: [] Pt was an active participant in group discussion. Attentive. Daily symptom tracker notes 10/22 for depression and anxiety. Emotion for today is ?hopeful?. Reports increased energy and engagement with his family. Unable to identify any stressors today. ? First time in awhile I haven?t hated my job?. He attributes improvement to a medication change that his outpatient test borer made. Progress noted, however some concern regarding hypomania at the acute change in mood. Will continue to monitor and inform program psychiatrist. Benefited from group support, encouragement, and feedback. Will continue in IOP to maintain safety, prevent decompensation/re-admission, and improve functioning. Narrative Note: []
--- NOTE | 2024-12-21 10:10 | BH.SGPN.GN ---
Behaviors/Verbalizations/Mental Status: [] Pt alert and oriented, casually dressed and groomed. Eye contact good. Motor activity appropriate. Speech within normal limits. Mood is euthymic. Affect is congruent. Thoughts linear, logical, no signs of hallucinations or delusions. Client Response/Progress/Benefit: [] Pt was an active?participant in group discussions and experiential activity. Worked with peers to identify benefits of healthy relationships which included; support, shared experiences, laughter, understanding, and the ability to challenge us. Group identified factors that lead to unhealthy relationships which included; fear, loneliness, low self-esteem, need to be liked, and societal expectations. Benefited from increased insight and awareness of benefits of healthy relationships and factors that contribute to unhealthy relationships. Will continue IOP to prevent decompensation/re-admission to psych unit, increase healthy coping skills, and improve functioning. Narrative Note: []
--- NOTE | 2024-12-21 11:05 | BH.SGPN.GN ---
Behaviors/Verbalizations/Mental Status: []Pt alert and oriented, casually dressed and groomed. Eye contact good. Motor activity appropriate. Speech within normal limits. Affect full, mood euthymic and anxious. Thoughts linear, logical, no signs of hallucinations or delusions. Client Response/Progress/Benefit: [] Pt responded well to session, engaged and taking notes throughout. Worked with group to connect components of the experiential activity with characteristics of healthy and unhealthy relationships. Attentive during psychoeducation about characteristics of healthy, unhealthy, and abusive relationships. Pt reported pt is better with enjoying personal time and he is working on communicating more. However, pt reported pt can work on making plans with friends again and not shutting down. Appeared to benefit from identifying current healthy relationship attributes and an area Pt wants to work on to build healthier relationships. Pt to continue IOP tx to prevent decompensation, increase use of healthy coping skills, and improve daily functioning. ? Narrative Note: []
--- NOTE | 2024-12-26 09:00 | BH.SGPN.GN ---
Behaviors/Verbalizations/Mental Status: [] Eye contact is good. Motor activity is appropriate. Appearance is casual. Speech is Appropriate. Mood is euthymic. Affect is congruent. Thoughts are linear and logical. No evidence of psychosis. Reviewed daily check in sheet and no reports of suicidal ideations or intent. Client Response/Progress/Benefit: [] Pt was an active participant in group discussions. Attentive. Daily symptom tracker notes 0/5 for depression and 0/5 for anxiety. Did well to identify 2 mental health wins including continuing to use exercise and healthy distraction as a means of stress management. Shared that this has aided in reducing the amount of time he spend ruminating on his occupational stress. 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 Additional win noted making time to do something with his without the kids. Shared that this was an enjoyable experience for him as well. Denies any current stressors as a result. Progress noted. Benefited from group support, encouragement, and feedback. Will continue in IOP to prevent decompensation, promote mood stability, and increase healthy coping consistency. Narrative Note: []
--- NOTE | 2024-12-26 10:15 | BH.SGPN.GN ---
Behaviors/Verbalizations/Mental Status: [] Client alert and oriented, casually dressed and groomed. Eye contact good. Motor activity appropriate. Speech within normal limits. Affect full, mood euthymic. Thoughts linear, logical, no signs of hallucinations or delusions. Client Response/Progress/Benefit: [] Pt was an attentive and active participant, AEB taking notes and providing input in group discussion. Attentive during psychoeducation. Pt engaged during interactive discussion in which the group defined self-care and discussed its benefits. Group discussed barriers and benefits to self-care. Identified benefits as being more productive, feeling more grounded, feeling happier, decreased anxiety, better quality of life, and increased resilience. Pt participated in small groups where they worked to identify and challenged common self-care ?myths?. Benefited from increased awareness of self-care, its benefits, and the consequences of not utilizing self-care strategies. Will continue IOP tx to prevent decompensation/re-admission to psych unit, increase healthy coping, and stablize mood. Narrative Note: []
--- NOTE | 2024-12-26 11:15 | BH.SGPN.GN ---
Behaviors/Verbalizations/Mental Status: []Client alert and oriented, neatly dressed and groomed. Eye contact good. Motor activity appropriate. Speech within normal limits. Affect congruent, mood euthymic. Thoughts linear, logical, no signs of hallucinations or delusions. Client Response/Progress/Benefit: [] Pt taking notes during discussion reviewing different areas of self-care and completing self-assessment of current self-care, as well as providing input throughout discussion. Did well to complete self-care self-assessment worksheet. Pt identified how pt is doing in each category and what self-care activities pt wants to start using. Pt selected physical and emotional self-care to begin practicing more consistently. Pt plans to do this by continuing to eat healthy and have regular check-ins with his . Appeared to benefit from completing the self-care evaluation and gaining insights into current self-care practices, as well as identifying areas in which pt would like to improve upon. Pt will continue IOP tx to promote mood stability, reduce negative self-talk, and increase self-confidence. Narrative Note: []
--- NOTE | 2024-12-27 09:00 | BH.SGPN.GN ---
Behaviors/Verbalizations/Mental Status: [] Eye contact is good. Motor activity is appropriate. Appearance is casual. Speech is Appropriate. Mood is content. Affect is congruent. Thoughts are linear and logical. No evidence of psychosis. Reviewed daily check in sheet and no reports of suicidal ideations or intent. Client Response/Progress/Benefit: [] Pt was an active participant in group discussions. Attentive. Daily symptom tracker notes 0/5 for depression and 0/5 for anxiety. Did well to identify 2 mental health wins including waking up early enough to workout prior to IOP tx. Shared that he does not feel it is something he will do regularly but was glad to utilize the morning in a healthy way rather than going back to sleep. Additional win noted as catching and challenging negative self-talk statements before they escalated further and applying self-compassionate approaches. Denies any stressors. Benefited from group support, encouragement, and feedback. Will continue in IOP to prevent decompensation, promote ongoing mood stability, and increase healthy coping. Narrative Note: []
--- NOTE | 2024-12-27 10:10 | BH.SGPN.GN ---
Behaviors/Verbalizations/Mental Status: [] Eye contact is good. Motor activity is appropriate. Appearance is casual. Speech is Appropriate. Mood is euthymic. Affect is full. Thoughts are linear and logical. No evidence of psychosis. Client Response/Progress/Benefit: [] Pt was engaged and participated at times, providing input and taking notes. Attentive during psychoeducation on anxiety and cognitive triangle. Participated in an interactive discussion on defining anxiety and identifying cognitive and physiological symptoms of anxiety. The group discussed the role of anxiety on isolation, avoidance, and overall functioning. Pt identified their physical/physiological signs of anxiety which includes: rapid heart rate, fast breathing, sweating, blurred vision, and chest pain. Benefited from increased awareness and insight on anxiety and its impact. Will continue in IOP to increase communication with supports, increase healthy coping skills, and prevent decompensation/re-admission to psych unit.
--- NOTE | 2024-12-27 12:10 | PCM.BH.PN ---
Progress Note Progress Note: History of Present Illness/Interim History: The patient is a 34-year-old male with a history of anxiety, depression and type 1 diabetes that was out of control in October 2024 but is now under control is seen in follow-up at the [facility] [place] behavioral health IOP. I last saw the patient 2 and half weeks ago and at that time the Effexor had been increased by his outpatient provider to 75 mg 2 weeks ago. The patient states that the Effexor was discontinued secondary to having increased anxiety, decreased sleep and worsening panic attacks that he feels was due to the increased Effexor. He was discontinued 10 days ago and the patient feels better and feels Col[place]. His appetite is improved and he is sleeping 6-7 7 hours a night. He has not had any panic attacks since 2 weeks ago. He states that his mood is better and feels normal. His also feels he is doing better. He denies any symptoms of hypomania or emile. In the patient was started on Prozac about 10 to 14 days ago by his outpatient provider. In July 2024 patient had been on Prozac and it gave him side effects and they weaned it and then he was placed on BuSpar 3 times daily and the patient got worse on BuSpar which and more anxious and this resulted in an admission to the psychiatric unit for suicidal ideation in early October 2024. Prozac has been discontinued and he thinks by the end of July. The patient is tolerating the Prozac well and has no side effects noticed. He denies passive thoughts of , suicidal ideation, plan for suicide, homicidal ideation, hallucinations or delusions. His appetite is better now as he had been losing weight in the recent past. Current Psychiatric Medications: [] Effexor XR discontinued about 10 days ago; trazodone 50 mg p.o. at bedtime; Prozac 10 mg p.o. daily (x 10 to 14 days). Mental Status Examination: [] The patient is a 34-year-old male with a martino who is casually dressed and groomed with good hygiene and appears normal for stated age. He has no psychomotor agitation or retardation and is ambulatory with a normal gait. Eye contact is good and speech is normal rate and rhythm and fluent with no pressure. Mood is euthymic. Affect is full and normal. Thought process is goal-directed and organized. Thought content: There is no evidence of passive thoughts of , suicidal ideation, plan for suicide, homicidal ideation, hallucinations or delusions. Reality testing is intact. Judgment is intact. Insight fair. Impulsivity low. Diagnoses: [] 1. Major depressive disorder, recurrent, moderate 2. Anxiety disorder, unspecified (F41.92. 3. Type 1 diabetes mellitus 4. Work stress Plan: [] Patient will continue the [facility] and behavioral health at [facility] as the structure, support, education and group therapy will hopefully prevent worsening of the patient's symptoms which could require rehospitalization. No medication changes were made today but long discussion was had with the patient that since he had side effects on Prozac in the past that we need to watch very closely for any worsening in his and his anxiety or any worsening of his symptoms in any way. The patient was hospitalized after being on BuSpar in early October 2024. The patient was weaned off Prozac in July 2024 due to side effects and he stated when I saw him last that the side effects kept getting worse after he was off the Prozac. The BuSpar was then added and then the patient was admitted as described in the initial eval with suicidal ideation. Patient will be watched closely for any worsening and if there is worsening of symptoms we will discontinue the Prozac. Will consider adding GeneSight testing and possibly adding a low-dose antipsychotic if the patient has recurrent side effects on Prozac again in case the patient has some unspecified version of bipolar disorder where he gets worse on antidepressants and antianxiety agents. He will continue to follow-up with his outpatient providers and I will see the patient in follow-up in 1 to 2 weeks.
--- NOTE | 2024-12-27 15:01 | BH.MDN ---
Multi-Disciplinary Note Note 30-min Individual: Time Started:: 11:10 Date: 12/27/24 Purpose of session/treatment goals addressed:: To review progress and continue working on thought challenging. Eye Contact:: Good Motor Activity:: Appropriate Appearance:: Neat Speech:: Appropriate Mood:: Euthymic Affect:: Full Thoughts:: Linear, Logical and No evidence of hallucinations/delusions noted Staff Interventions:: thought challenging, motivational interviewing, CBT techniques, mindfulness skills, discharge planning, strengths perspective and other (discussed changes in mood/perspective compared to last session.) Client Response:: Pt responded well to session, open to meeting with therapist. Pt stated he is feeling so much better this week and denies any stressors at work or home. This is a significant shift from last week, so this therapist brought this to pt's attention. Pt reports belief that his medication shift was extremely helpful and that he is feeling more level headed. Pt also noted that he and his scheduled their family vacation which was exciting and the stressor that had been going on at work is finally resolved. Pt acknowledges that he will not always feel this happy, so it will be helpful to write out his progress while he is feeling better. This could help pt challenge any future negative thoughts. Pt receptive to discussion on discharge and we decided that if pt continues to show mood stability over the next two weeks, he will feel confident to discharge from IOP. Pt given homework to review therapist options and call. Risks/Concerns:: Pt denies any suicidal ideations, plan, or intent. Pt denies any thoughts of . Progress Toward Goals/Plan:: Pt's mood is much improved compared to last week. Pt reports belief that his medication change and a work stressor being resolved has significantly improved his mood and reduced his symptoms. Pt agreeable to continuing IOP tx to see if these symptoms can remain resolved and decreased for more than a week since this is such a significant shift compared to last week. Pt also given resources for outpatient counseling and pt will call to schedule. Pt will continue IOP tx to promote gains, increase distress tolerance skills, and improve self-confidence. Time Stopped:: 11:28
--- NOTE | 2024-12-29 09:00 | BH.SGPN.GN ---
Behaviors/Verbalizations/Mental Status: [] Client alert and oriented, casual appearance. Eye contact good. Motor activity appropriate. Speech within normal limits. Affect congruent, mood euthymic. Thoughts linear, logical, no signs of hallucinations or delusions. Reviewed client's symptom tracker, no risk for suicidal ideation, plan, or intent. Client Response/Progress/Benefit: [] Client responded well to session AEB listening to others and sharing thoughts/feelings. Client reported mental positive as getting up early this morning to work out which she noted was helpful to his mood. Client noted additional mental positive as using opposite action to make himself for the laundry which is often a task that he pushes off because he does not enjoy it. Client noted current stressor as trying to potty train his child which has been difficult. Appeared to benefit from support from peers. Will continue IOP tx to increase healthy coping skills, challenge distortions, and prevent decompensation. Narrative Note: []
--- NOTE | 2024-12-29 10:10 | BH.SGPN.GN ---
Behaviors/Verbalizations/Mental Status: [] Eye contact is good. Motor activity is appropriate. Appearance is casual. Speech is Appropriate. Mood is dysthymic. Affect is congruent. Thoughts are linear and logical. No evidence of psychosis. Client Response/Progress/Benefit: [] Pt engaged participant AEB listening to others, engaging in activity, and providing feedback throughout. Attentive during psychoeducation and provided insight into obstacles that impede mental wellness. Pt shared with group current mental health reality and desired mental health reality. Identified barriers to desired reality. Benefited from taking look at current mental health state and obstacles for progress. Pt to continue IOP tx to prevent decompensation, increase healthy coping, and improve functioning at home and work. Narrative Note: []
--- NOTE | 2024-12-29 11:15 | BH.SGPN.GN ---
Behaviors/Verbalizations/Mental Status: []Pt alert and oriented, neatly dressed and groomed. Eye contact good. Motor activity appropriate. Speech within normal limits. Affect congruent, mood content. Thoughts linear, logical, no signs of hallucinations or delusions. Client Response/Progress/Benefit: [] Pt was engaged at times during group discussions and was attentive during group activity. Worked with peers to identify strategies to help overcome barriers and obstacles to desired reality. Group worked together to develop strategies for the common barriers. Identified personal barriers to desired reality and chose one obstacle to work. Pt stated pt wants to work on not isolating and using positive self-talk.? Pt seemed to benefit from increased knowledge of practical strategies to overcome common barriers to moving forward. Will continue in IOP to promote mood stability, reduce negative thinking patterns, and improve daily functioning. ?? Narrative Note: []
--- NOTE | 2025-01-01 09:05 | BH.SGPN.GN ---
Behaviors/Verbalizations/Mental Status: [] Eye contact is good. Motor activity is appropriate. Appearance is casual. Speech is Appropriate. Mood is anxious. Affect is congruent. Thoughts are linear and logical. No evidence of psychosis. Reviewed daily check in sheet and no reports of suicidal ideations or intent. Client Response/Progress/Benefit: [] Pt participated at times during the group discussion. Reports that his ?anxiety is high?. He is trying to reframe and not catastrophize. ? Hopefully it will level out? Believes that his brain is ? hyper focusing? which intensifies stressors and emotions. Group encouraged trying skills rather than simply waiting it out. Regression noted. Benefited from group support, encouragement, and feedback. Will continue in IOP to prevent decompensation, increase healthy coping, and improve functioning. Narrative Note: []
--- NOTE | 2025-01-01 11:05 | BH.SGPN.GN ---
Behaviors/Verbalizations/Mental Status: []Eye contact is good. Motor activity is appropriate. Appearance is casual. Speech is Appropriate. Mood is euthymic. Affect is congruent. Thoughts are linear and logical. No evidence of psychosis. Client Response/Progress/Benefit: []Pt was an active participant in group discussion. Engaged and attentive during psychoeducation and interactive discussion on coping skills, why people use unhealthy coping skills, how to replace unhealthy coping skills, and internal vs external coping skills. Attentive as peers came up with list of unhealthy coping skills. Pt reported personally, they tend to either isolate or nap to avoid. Group discussed the effects of maladaptive coping skills on mental health. Benefited from increased understanding of unhealthy coping skills and the need for developing healthy internal and external coping skills. Actively participated during experiential group activity and was able to related this activity to group topic. Will continue in IOP to maintain healthy thinking patterns, consistently apply healthy coping skills, and promote ongoing mood stability. Narrative Note: []
--- NOTE | 2025-01-01 11:15 | BH.SGPN.GN ---
Behaviors/Verbalizations/Mental Status: []Pt alert and oriented, casually dressed and groomed. Eye contact good. Motor activity appropriate. Speech within normal limits. Affect congruent, mood euthymic. Thoughts linear, logical, no signs of hallucinations or delusions. Client Response/Progress/Benefit: [] Pt responded well to session, taking notes and contributing when prompted. Group discussed the different categories of coping skills which included distraction, emotional release, grounding, self-love, and thought challenging. Pt participated in creating a coping skills ?menu? from the different categories of coping skills. Pt's coping skill menu included: exercising, cognitive diffusion, pausing, and solving one problem. Appeared to benefit from increasing their repertoire of healthy coping skills. Will continue IOP to promote mood stability, improve daily functioning, and reduce negative self-talk. Narrative Note: []
--- NOTE | 2025-01-02 09:05 | BH.SGPN.GN ---
Behaviors/Verbalizations/Mental Status: []Pt alert and oriented, neatly dressed and groomed. Eye contact good. Motor activity appropriate. Speech within normal limits. Affect congruent, mood euthymic. Thoughts linear, logical, no signs of hallucinations or delusions. Client Response/Progress/Benefit: []Pt was an active participant in group discussions. Attentive. Able to identify mental health wins including having the motivation and follow through to change his oil and getting good sleep. Pt's stressor today is ?I don?t have one.? Pt is feeling content? this morning. Pt receptive to feedback from peers which pt reported was helpful. Progress noted. Benefited from group support, encouragement, and feedback. Will continue in IOP to promote use of healthy coping skills, reduce negative thinking, and increase self-esteem. Narrative Note: []
--- NOTE | 2025-01-02 11:15 | BH.SGPN.GN ---
Behaviors/Verbalizations/Mental Status: [] Eye contact is good. Motor activity is appropriate. Appearance is casual. Speech is Appropriate. Mood is euthymic. Affect is congruent. Thoughts are linear and logical. No evidence of psychosis. Client Response/Progress/Benefit: [] Client responded well to session AEB listening attentively to peers, providing input, as well as taking notes throughout. Client contributed throughout psychoeducation on different boundary setting styles. Reports connecting with porous and flexible types of boundary setting, but indicated that he needs to be more mindful of his 's boundaries. Participated in small group discussion brainstorming various strategies for improving healthy boundary setting. Client reports wanting to begin using skill of practicing saying no to the little things and becoming more mindful of needs. Will continue IOP tx to increase self-care and anxiety management, and increase overall functioning. Narrative Note: []
--- NOTE | 2025-01-02 15:05 | BH.MDN ---
Multi-Disciplinary Note Note 30-min Individual: Time Started:: 10:35 Date: 01/02/25 Purpose of session/treatment goals addressed:: To address current stressors and discuss strategies to help cope with these stressors. Another goal was to discuss discharge and aftercare. Eye Contact:: Good Motor Activity:: Appropriate Appearance:: Neat Speech:: Appropriate Mood:: Euthymic Affect:: Full Thoughts:: Linear, Logical and No evidence of hallucinations/delusions noted Staff Interventions:: CBT techniques, discharge planning, strengths perspective and other (maintenance plan; reviewed progress) Client Response:: Pt responded well to session, open to meeting with therapist. Pt shared he is still feeling much better and pt reports belief that his medication is finally evening out. Pt stated he is noticing that when he is stressed, he can recognize the distortions and he is able to challenge his perspective which prevents spiraling. Pt reports he feels much better about his job and no longer feels that he needs to shift careers. Pt also has been consistent with exercising and keeping up with hobbies which has been helpful. Pt also feels using opposite action and dialectical thinking has been benefifical. Pt followed up with setting up outpatient therapy and stated he hopes to get a call back from [facility] next week. Pt receptive to working on a maintenance plan to help pt continue making progress and catch early warning signs. Pt will do this for homework and review it with therapist next week. Risks/Concerns:: Pt denies any suicidal ideations, plan, or intent. Pt denies any thoughts of . Progress Toward Goals/Plan:: Pt continues to make progress towards tx goals AEB pt's report of improved mood for the past almost two weeks and his self-report of improved perspective on life. Pt stated his perspective towards work has shifted and he feels much better about his job. Pt also reports less martial stress currently. Pt will continue with IOP tx for one more week to establish aftercare, establish a maintenance plan, and reinforce healthy coping skills. Time Stopped:: 11:00
--- NOTE | 2025-01-04 09:00 | BH.SGPN.GN ---
Behaviors/Verbalizations/Mental Status: [] Client alert and oriented, casual appearance. Eye contact fair. Motor activity appropriate. Speech within normal limits. Affect congruent, mood anxious and dysthymic. Thoughts linear, logical, no signs of hallucinations or delusions. Reviewed client's symptom tracker, no risk for suicidal ideation, plan, or intent. Client Response/Progress/Benefit: [] Client responded well to session AEB listening to others and sharing thoughts/feelings. Client noted mental positive as being able to change his own oil on his car and fix another issue that was wrong with his car independently. Client noted additional mental positive as using opposite action to make himself exercise because he recognizes body movement does tend to be a coping skill that helps him feel better. Client shared his current stressors that he has been feeling more down and anxious over the last week and due to his anxiety he had to leave work early yesterday. Appeared to benefit from support from peers. Will continue IOP tx to decrease anxious avoidance, challenge negative thoughts, and prevent decompensation. Narrative Note: []
--- NOTE | 2025-01-04 10:15 | BH.SGPN.GN ---
Behaviors/Verbalizations/Mental Status: [] Pt alert and oriented, casually dressed and groomed. Eye contact good. Motor activity appropriate. Speech within normal limits. Affect congruent, mood anxious. Thoughts linear, logical, no signs of hallucinations or delusions. Client Response/Progress/Benefit: [] Pt was an active participant in group discussions. Attentive during psychoeducation on the CBT [place] (Thoughts, Behaviors, Emotions). Engaged in group discussion on how thoughts and behaviors can contribute to maintaining adverse feelings, such as depression, anxiety, and irritability. Completed worksheet in which pt identified obstacles and/or thoughts that are keeping them stuck. Shared obstacles that included; shutting down, avoidance, not planning, feeling broken. Pt benefited from increased awareness of the basis of CBT therapy as well as specific thoughts that are impacting pt's progress. Will continue in IOP to prevent decompensation/ re-admission to psych unit, maintain safety, and increase healthy coping skills. Narrative Note: []
--- NOTE | 2025-01-04 11:15 | BH.SGPN.GN ---
Behaviors/Verbalizations/Mental Status: []Pt alert and oriented, casually dressed and groomed. Eye contact good. Motor activity appropriate. Speech within normal limits. Affect congruent, mood dysthymic and anxious. Thoughts linear, logical, no signs of hallucinations or delusions. Client Response/Progress/Benefit: [] Pt responded well to session, contributing to discussion and attentive throughout. Pt identified a negative thought that has kept them stuck. Pt's thought was I?m broken.? Pt reported when they think this way, pt isolates, speaks negatively to himself, and ruminates. Pt worked to reframe the thought by finding more rational, realistic ways to look at the thoughts and then processed them within group setting. Pt reframed the thought to ?I am working on myself and have accomplished a lot.? Pt appeared to benefit from practicing challenging negative thinking with peers and gaining coping skills. Pt will continue IOP tx to promote mood stability, increase thought challenging, and further increase self-compassion. Narrative Note: []
--- NOTE | 2025-01-08 09:00 | BH.SGPN.GN ---
Behaviors/Verbalizations/Mental Status: [] Eye contact is good. Motor activity is appropriate. Appearance is casual. Speech is Appropriate. Mood is dysthymic and anxious. Affect is congruent. Thoughts are linear and logical. No evidence of psychosis. Reviewed daily check in sheet and no reports of suicidal ideations or intent. Client Response/Progress/Benefit: [] Pt participated at times during the group discussion. Reports ? ups and downs? this weekend. At times felt like her was ?crawling back into a hole?. Despite regression he is trying to be optimistic and is relying on support and encouragement from those close to him. Limited progress noted. Struggles over the week and did utilize skills rather than avoid. Benefited from group support, encouragement, and feedback. Will continue in IOP to prevent decompensation/re-admission to psych, increase healthy coping, and improve functioning. Narrative Note: []
--- NOTE | 2025-01-08 10:20 | BH.SGPN.GN ---
Behaviors/Verbalizations/Mental Status: []Pt alert and oriented, neatly dressed and groomed. Eye contact good. Motor activity appropriate. Speech within normal limits. Affect congruent, mood euthymic. Thoughts linear, logical, no signs of hallucinations or delusions. Client Response/Progress/Benefit: [] Pt was attentive during psychoeducation and participated in group activity. Group discussed what contributes to a person?s perspective and how perspective can positively or negatively impact mental health treatment. Pt reflected on their perspective today and how it is impacting them. Pt shared their perspective is in the middle of positive and pessimistic. Pt stated ?I?m making progress in a lot of ways, but I feel like I?m slowing down.? Pt appeared to benefit from increasing awareness of different perspectives and how they can affect mental health. Pt will continue IOP tx to prevent decompensation, improve daily functioning, and improve self-compassion. Narrative Note: []
--- NOTE | 2025-01-08 11:20 | BH.SGPN.GN ---
Behaviors/Verbalizations/Mental Status: []Pt alert and oriented, casually dressed and groomed. Eye contact good. Motor activity appropriate. Speech within normal limits. Affect congruent, mood content. Thoughts linear, logical, no signs of hallucinations or delusions. Client Response/Progress/Benefit: []Pt was attentive and contributed to group discussion. Pt worked with group to identify strategies that can help with challenging negative perspective. Pt stated they can practice using affirmations to challenge negative perspective. Pt completed strengths exploration worksheet, identifying personal strengths. Pt able to acknowledge how these strengths are helping pt and can continue to help pt in mental health journey. Pt identified wanting to work on leaning on strength of athleticism and adventurousness. Benefited from identifying personal strengths and strategies for enhancing use of identified strengths. Pt will continue IOP tx to continue improve functioning, mood stability, and prevent decompensation. Narrative Note: []
--- NOTE | 2025-01-09 09:00 | BH.SGPN.GN ---
Behaviors/Verbalizations/Mental Status: [] Client alert and oriented, casual appearance. Eye contact good. Motor activity appropriate. Speech within normal limits. Affect congruent, mood dysthymic. Thoughts linear, logical, no signs of hallucinations or delusions. Reviewed client's symptom tracker, no risk for suicidal ideation, plan, or intent. Client Response/Progress/Benefit: [] Client responded well to session AEB listening to others and sharing thoughts/feelings. Client reported mental positive as using opposite action by making a birdhouse with his a child yesterday. Client noted he found this to be helpful because after getting home from work he was feeling down but uses skills to keep himself from going any deeper and depression. Appeared to benefit from support from peers. Will continue IOP tx to increase consistent utilization of healthy coping skills, challenge distortions, and prevent decompensation. Narrative Note: []
--- NOTE | 2025-01-09 10:10 | BH.SGPN.GN ---
Behaviors/Verbalizations/Mental Status: [] Eye contact is good. Motor activity is appropriate. Appearance is casual. Speech is Appropriate. Mood is anxious and content. Affect is congruent. Thoughts are linear and logical. No evidence of psychosis. Client Response/Progress/Benefit: [] Pt was an active participant during group discussions and group activities. This portion of group was very psychoeducation heavy and pt was attentive during psychoeducation. Engaged during activity in which they identified which type of foods (i.e. carbs, sugar, salt, fast food, caffeine, etc) they seek out when sad, tired, angry, stressed, anxious, etc. Pt was able to identify the impact that certain foods have on their mental health through group example which was beneficial. Benefited from increased awareness of the connection between nutrition and mental health. Will continue in IOP to prevent decompensation, improve healthy coping, and maintain mood stability. Narrative Note: []
--- NOTE | 2025-01-09 11:15 | BH.SGPN.GN ---
Behaviors/Verbalizations/Mental Status: []Pt alert and oriented, neatly dressed and groomed. Eye contact good. Motor activity appropriate. Speech within normal limits. Affect congruent, mood euthymic and anxious. Thoughts linear, logical, no signs of hallucinations or delusions. Client Response/Progress/Benefit: [] Pt was an active participant during group discussions and group activities. This portion of group was very psychoeducation heavy and pt was attentive during psychoeducation. Engaged during activity in which they identified their own maintenance cycles with food and how it impacts their mental health symptoms. Pt and peers identified barriers to breaking these cycles as well as ways to combat barriers. Pt stated he is working on reducing sugar as it makes his anxiety and depression worse. Benefited from increased awareness of the connection between nutrition and mental health and from identifying strategies. Will continue in IOP to promote use of healthy coping skills, challenge distortions, and increase self-confidence. Narrative Note: []
--- NOTE | 2025-01-09 14:57 | BH.IGGP_ITS ---
Aftercare Plan Demographics Treatment End Date:: 01/12/25 Psychiatrist:: Cheli Tony Psychiatrist Office #:: [phone] PHP/IOP Therapist:: Natalia Sanchez Therapist Phone #:: [phone] Medications Home Medications INSULIN PUMP (INFORMATIONAL USE ONLY-PATIENT HAS INSULIN PUMP) 12/07/24 trazodone 50 mg tablet 50 mg PO QHS PRN insomnia 12/07/24 fluoxetine 10 mg capsule (Prozac) 10 mg PO DAILY 12/27/24 Plan Details Progress/Aftercare Plan Details:: Robert has responded well to treatment as evidenced by Robert consistently attending IOP sessions and reduction of DSM-5 scores since admission. Robert was always attentive and receptive to learning during group and individual sessions. Robert actively applied coping skills outside of IOP and reports overall mood is improved and functioning is better than several months ago. Robert?s overall symptom reduction is 60% since admission with anger decreasing by 50%, depression decreasing by 33%, suicidal ideations decreasing by 100%, and anxiety decreasing by 40%. Robert has increased self- compassion and faced many hard things. Most importantly, Robert has become more vulnerable, flexible, and confident in his abilities. Robert will follow up with [facility] for medication management and [facility] for individual counseling. Strategies for Success:: 1. Opposite action! Continue to break that cycle of anxiety, guilt, and depression by not letting emotions be the only drivers of your bus. 2. Remember that thoughts are thoughts NOT facts! You have power in if you give thoughts the time of day or not. 3. self-care! You deserve to take time for you and you also deserve to face the not so fun self-care like working out and opposite action 4. Self-compassion! You are human and you will make a mistake?BUT that doesn?t mean you are a failure or not good enough. Remember there are no bad parts! 5. Continue to practice acceptance and remember that it is okay to be doing enough 6. Practice positive self-talk and keep track of your wins. 7. Remember progress isn?t linear! You may have a setback or bump in the road, but that doesn?t mean you?ve lost all progress. 8. self-reflection and self-awareness. 9. Be understanding with yourself and try to see the whole picture, not just the snapshot. 10. Live in the estes!! Appointments Appointments/Referrals to Other Services:: 1. [facility] 2. [facility] for individual therapy. 3. IOP aftercare starting 01/18/25 from 2-3:30pm
--- NOTE | 2025-01-09 14:57 | BH.MDN ---
Multi-Disciplinary Note Note 45-min Individual: Time Started:: 09:20 Date: 01/09/25 Purpose of session/treatment goals addressed:: To address current stressors and discuss strategies to help cope with these stressors. Another goal was to discuss discharge and aftercare. Eye Contact:: Good Motor Activity:: Appropriate Appearance:: Neat Speech:: Appropriate Mood:: Euthymic and Anxious Affect:: Full Thoughts:: Linear, Logical and No evidence of hallucinations/delusions noted Staff Interventions:: discharge planning, strengths perspective, reviewed DSM-5 and other (reviewed maintenance plan) Client Response:: Pt responded well to session, open to meeting with therapist. Pt reports he has been feeling a little off the past few days which pt recognized could be due to IOP ending and recently finding out a friend . Pt reports in the past these feelings would lead to a spiral and pt isolating, but pt feels that he is coping in much healthier ways. For example, pt reported instead of sitting around yesterday when he was feeling off he went outside to his shed and built a birdhouse. Pt completed his maintenance plan for depression and anxiety. Pt's plan included triggers which included work stress, unrealistic expectations, and his family. Pt's coping skills included reaching out to support, opposite action, working out, and using positive self-talk. Pt reports he has also learned about the importance of using affirmations and re-engaging in his hobbies to prevent burnout and feeling depressed. Pt plans to talk with his boss about participating in IOP aftercare and will let [facility] staff know on Wednesday. Pt will be seeing a counselor through [facility] starting in January. Risks/Concerns:: Pt denies any suicidal ideations, plan, or intent. Pt denies any thoughts of . Progress Toward Goals/Plan:: Pt reports he is not feeling as good as I thought I would feel but pt recognizes that he has made a lot of progress since beginning IOP. Pt reports he is able to challenge his negative thoughts much more effectively, regulate his stress, and he has more good days. Pt reports he is also working on more projects and trying to communicate more with his supports. Pt will discharge from [facility] tx on 01/12/25. Time Stopped:: 10:00
--- NOTE | 2025-01-11 11:58 | BH.DS ---
Discharge Summary Demographics Date of Admission:: 12/01/24 Discharge Date: 01/12/25 Presenting Problems at Admission:: Pt is a 34-year-old male with a history of MDD. Pt was referred to [facility] tx following a recent psych admission at [facility] from 10/24/24-10/25/24 for suicidal ideations with thoughts of crashing his car. Pt has been decompensating since July due to medication changes, work stress, and family stress. Prior to IOP admission, pt had been off work for three weeks due to his symptoms. Pt also had to step back from his previous role at work due to his symptoms. At admission, pt endorses a depressed mood, low energy, hopelessness, worthlessness, isolation, anhedonia, and ruminations. Pt's daily functioning has been impaired as pt is struggling with getting out of bed and is not able to engage in his hobbies and interests. Discharge Diagnoses:: Major depressive disorder, recurrent, severe without psychosis F33.2; Anxiety unspecified Reason for Discharge:: Pt has accomplished her tx goals AEB his reduction of DMS-5 symptoms, his self-report of improved functioning and mood, and improved outlook. Pt no longer meets criteria for [facility] level of care and will discharge to outpatient counseling. Treatment Progress During Treatment & Response: Pt has responded well to treatment as evidenced by Pt consistently attending IOP sessions and reduction of DSM-5 scores since admission. Pt was always attentive and receptive to learning during group and individual sessions. Pt actively applied coping skills outside of IOP and reports overall mood is improved and functioning is better than several months ago. Pt?s overall symptom reduction is 60% since admission with anger decreasing by 50%, depression decreasing by 33%, suicidal ideations decreasing by 100%, and anxiety decreasing by 40%. Pt has increased self-compassion and faced many hard things. Most importantly, Pt has become more vulnerable, flexible, and confident in his abilities. Pt will follow up with [facility] for medication management and [facility] for individual counseling. Issues Still to be Addressed:: Pt can benefit from continuing to challenge negative self-talk, communicate needs and emotions, and from engaging in hobbies more consistently. Pt's work has also been a primary source of stress, so pt can benefit from continuing to work on regulating work-related stressors. Discharge Recommendations/Instructions:: Pt will continue seeing his outpatient psychiatric provider at [facility] [place] for medication management. Pt's last appointment was at the beginning of December. Pt will be seeing a therapist through [facility] and pt stated he is expecting a call today to schedule his first appointment. Pt was offered IOP aftercare, but pt was unable to get the time off work. Discharge Handout
--- NOTE | 2025-01-12 09:05 | BH.SGPN.GN ---
Behaviors/Verbalizations/Mental Status: [] Eye contact is good. Motor activity is appropriate. Appearance is casual. Speech is Appropriate. Mood is euthymic. Affect is full. Thoughts are linear and logical. No evidence of psychosis. Reviewed daily check in sheet and no reports of suicidal ideations or intent. Client Response/Progress/Benefit: [] Pt was an active participant in group discussions. Attentive. Reports ? mixed feelings? today as its his last day in [facility]. Self-reports progress while in [facility] as he reports feeling more confident in his ability to manage emotions, thoughts, and actions. ? I?m handling stress well?. Reports feeling ? content and hopeful?. Progress noted. Benefited from group support, encouragement, and feedback. Will be discharged from [facility] successfully today Narrative Note: []
--- NOTE | 2025-01-12 10:15 | BH.SGPN.GN ---
Behaviors/Verbalizations/Mental Status: []Eye contact is good. Motor activity is appropriate. Appearance is casual. Speech is Appropriate. Mood is euthymic. Affect is congruent. Thoughts are linear and logical. No evidence of psychosis. Client Response/Progress/Benefit: [] Pt receptive to session AEB listening attentively to others and taking notes. Pt attentive and contributed throughout psychoeducation on the cognitive triangle and maintenance cycles. Pt engaged during group discussion reviewing the impact of daily activities and behaviors in either reinforcing unhealthy maintenance cycles and depression or assisting in reducing symptoms (?down? vs ?up? activities). Pt participated during interactive discussion in which pt identified common up activities (exercise, showering, walks, music, prayer, talking to supports) and down activities (isolating, not eating healthy, and not doing hobbies.) Appeared to benefit from increased awareness of current behaviors and impact these have on mental health. Will discharge from IOP tx as pt has met his tx goals and no longer meets criteria for IOP level of care. ??? Narrative Note: []
--- NOTE | 2025-01-12 11:15 | BH.SGPN.GN ---
Behaviors/Verbalizations/Mental Status: []Pt alert and oriented, casually dressed and groomed. Eye contact good. Motor activity appropriate. Speech within normal limits. Affect congruent, mood euthymic. Thoughts linear, logical, no signs of hallucinations or delusions. Client Response/Progress/Benefit: [] Pt responded well to session, attentive and engaged in group discussions and activity. Actively engaged in continued discussion about up activities and down activities. Client stated up activities would like to practice to include: listening to music, being outside, and hunting. Active participant as group discussed values and the benefits that knowing one's values can have on one's mental health. Benefited from increased awareness of their up activities and how incorporating their values into behavioral activation goals can positively impact mental health. Will continue in IOP to prevent decompensation, improve daily functioning, and reduce negative thinking patterns.
== END 2025-01-12 12:22 | disposition home or self-care (01) ==
LOC: BHIOP 07:37
PROVIDERS: PCP Pediatrics; Visit Provider Psychiatry & Neurology Psychiatry
DX: F33.1 Major depressive disorder, recurrent, moderate (principal); F41.9 Anxiety disorder, unspecified; E11.9 Type 2 diabetes mellitus without complications; Z79.4 Long term (current) use of insulin
CPT/HCPCS: S9480; 90832; 90834; 90853